=== PATIENT | female | born 1930 | race Caucasian/White ===

== ENCOUNTER → 2016-05-05 | Outpatient (REF) ==
[~2016-05-05] MED LIST: BUMEX0.5 MG PO; COREG12.5 MG PO; LIPITOR 10MG10 MG PO; MACRODANTIN100 PO; NEURONTIN300 MG/CAP; RT SPIRIVA18 MCG IH; RYTHMOL 15150 MG/TAB PO; TRADJENTA5 MG PO; URECHOLINE 25MG25 MG PO; VISION VITAMINS1 TA1 PO; VITAMIN A10k
[2016-05-05 08:26] LABS: PH 6 (5-8); SQUAMOUS EPITHELIAL None Seen /hpf; URINE APPEARANCE Clear; URINE BACTERIA Rare /hpf; URINE BILIRUBIN Negative (NEGATIVE); URINE BLOOD Negative (NEGATIVE); URINE COLOR Straw; URINE GLUCOSE Negative (NEGATIVE); URINE KETONE Negative (NEGATIVE); URINE RBC 0-2 /hpf; URINE UROBILINOGEN Negative (NEGATIVE)
== END ==
LOC: ZMSC 08:06
PROVIDERS: Orthopaedic Surgery
DX: Z01.89 Encounter for other specified special examinations (principal)

== ENCOUNTER 2016-05-06 08:56 | Inpatient (IN) | payer MEDICARE, BC ==
[2016-05-06] VITALS (386 sets, daily range): BP systolic 95–137; BP diastolic 42–68; PULSE 84–974; TEMP 33.6–36.8; O2SAT 62–100
[~2016-05-06] VITALS: Ht 167.6 cm; Wt 78.7 kg
[2016-05-06 09:13] LABS: MEAN CELL VOLUME 94 fl (80.0-100.0); MEAN CORPUSCULAR HGB CONC 32 g/dl (33.0-37.0); MEAN PLATELET VOLUME 10.6 fl (7.4-10.4); PLATELET COUNT 160 K/mm3 (130-400); RED BLOOD COUNT 3.74 M/mm3 (4.10-5.30); REDCELL DISTRIBUTION WIDTH-CV 13.6 % (11.5-14.5); WHITE BLOOD COUNT 19.7 K/mm3 (4.8-10.8)
[2016-05-06 09:16] LABS: HEMATOCRIT 35.1 % (37.0-47.0); HEMOGLOBIN 11.2 g/dl (12.5-16.0); MEAN CORPUSCULAR HEMOGLOBIN 30 pg (27.0-31.0)
[2016-05-06 09:18] LABS: ADD PATHOLOGY DIFF REVIEW NO; INR 1.1 (0.8-3.0); PROTHROMBIN TIME 12.6 SECONDS (9.7-12.8)
[2016-05-06 09:20] LABS: PARTIAL THROMBOPLASTIN TIME 28.2 SECONDS (26.0-37.0)
[2016-05-06 09:23] LABS: BAND 13 % (0-10); METAMYELOCYTE 4 % (0-0); NEUTROPHILS 64 % (42.0-75.2); PLATELET ESTIMATE NORMAL (NORMAL); TOTAL CELLS COUNTED 100
[2016-05-06 09:25] LABS: ALANINE AMINOTRANSFERASE 96 U/L (9-52); ALKALINE PHOSPHATASE 67 U/L (50-136); ANION GAP 14 mmol/L (7-16); BILIRUBIN,TOTAL 0.8 mg/dL (0.0-1.0); BLOOD UREA NITROGEN 39 mg/dL (7-17); CALCIUM 7.2 mg/dL (8.4-10.2); CARBON DIOXIDE 17 mmol/L (22-30); CHLORIDE 103 mmol/L (98-107); CREATININE, serum 1.52 mg/dL (0.52-1.25); GLUCOSE 336 mg/dL (74-106); LIPASE 135 U/L (23-300); PHOSPHOROUS 6.2 mg/dL (2.5-4.5); POTASSIUM 5.5 mmol/L (3.4-5.0); SODIUM 133 mmol/L (137-145); TOTAL PROTEIN 5.8 gm/dL (6.4-8.2)
[2016-05-06 09:31] LABS: ABG VENTILATOR TIDAL VOLUME 450 mL; ARTERIAL BLD GAS O2 SATURATION 98.7 % (92-100); ARTERIAL BLD GAS TCO2 CT 19.5; ARTERIAL BLOOD GAS BASE EXCESS -8.1 (-2-2); ARTERIAL BLOOD GAS HCO3 18.2 meq/L (22-26); ARTERIAL BLOOD GAS PHT 7.27 C (7.35-7.45); ARTERIAL BLOOD GAS PO2 428.2 mmHg (80-100); ARTERIAL BLOOD GAS PO2T 428.2 (80-100); ARTERIAL BLOOD GAS pH 7.27 (7.35-7.45); ATS? NO; OXYHEMOGLOBIN 97.9 %
[2016-05-06 09:37] LABS: B-TYPE NATRIURETIC PEPTIDE 1690 pg/mL (0-450); TROPONIN-I < 0.012 ng/mL (0.000-0.034)
[2016-05-06 17:16] LABS: VENOUS BLOOD GAS BE -4.9 (-4-4); VENOUS BLOOD GAS SAO2 59.1 % (60-80)
[2016-05-06 17:17] LABS: ARTERIAL BLD GAS O2 SATURATION 95.6 % (92-100); ARTERIAL BLD GAS TCO2 CT 19.9; ARTERIAL BLOOD GAS BASE EXCESS -8.8 (-2-2); ARTERIAL BLOOD GAS HCO3 18.5 meq/L (22-26); ARTERIAL BLOOD GAS PHT 7.23 C (7.35-7.45); ARTERIAL BLOOD GAS PO2 93.6 mmHg (80-100); ARTERIAL BLOOD GAS PO2T 90.2 (80-100); ARTERIAL BLOOD GAS pH 7.22 (7.35-7.45); OXYHEMOGLOBIN 94.9 %
[2016-05-06 17:17] LABS: VENOUS BLOOD GAS BE -7.4 (-4-4); VENOUS BLOOD GAS SAO2 54.1 % (60-80)
[2016-05-06 17:19] LABS: VENOUS BLOOD GAS SITE CENTRAL LINE
[2016-05-06 17:20] LABS: ABG VENTILATOR TIDAL VOLUME 450 mL; ATS? NO
[2016-05-06 17:21] LABS: VENOUS BLOOD GAS SITE CENTRAL LINE
[2016-05-06 17:26] LABS: ADJUSTED CALCIUM 7.9 mg/dL (8.4-10.2); ALBUMIN 3.1 gm/dL (3.5-5.0); BILIRUBIN,TOTAL 0.7 mg/dL (0.0-1.0); CALCIUM 7.2 mg/dL (8.4-10.2); CREATININE, serum 1.44 mg/dL (0.52-1.25); MAGNESIUM 1.8 mg/dL (1.6-2.3); PHOSPHOROUS 4.4 mg/dL (2.5-4.5); POTASSIUM 5.4 mmol/L (3.4-5.0); TOTAL PROTEIN 6.1 gm/dL (6.4-8.2)
[2016-05-06 17:27] LABS: BILIRUBIN,TOTAL 0.7 mg/dL (0.0-1.0); CALCIUM 7.2 mg/dL (8.4-10.2); TOTAL PROTEIN 5.6 gm/dL (6.4-8.2)
[2016-05-06] MEDS ORDERED: BUMEX0.5 MG PO (17:50)
[2016-05-06] MEDS ORDERED: COREG12.5 MG PO (17:50)
[2016-05-06] MEDS ORDERED: TRADJENTA5 MG PO (17:50)
[2016-05-06] MEDS ORDERED: RYTHMOL 15150 MG/TAB PO (17:50)
[2016-05-06] MEDS ORDERED: RT SPIRIVA18 MCG IH (17:51)
[2016-05-06] MEDS ORDERED: VISION VITAMINS1 TA1 PO (17:51)
[2016-05-06] MEDS ORDERED: NEURONTIN300 MG/CAP (17:51)
[2016-05-06] MEDS ORDERED: VITAMIN A10k (17:51)
[2016-05-06] MEDS ORDERED: URECHOLINE 25MG25 MG PO (17:52)
[2016-05-06] MEDS ORDERED: LIPITOR 10MG10 MG PO (17:52)
[2016-05-06] MEDS ORDERED: MACRODANTIN100 PO (17:52)
[2016-05-06 18:01] LABS: BILIRUBIN,DIRECT 0.3 mg/dL (0.0-0.4)
[2016-05-06 20:17] LABS: INR 1.3 (0.8-3.0); PROTHROMBIN TIME 14.3 SECONDS (9.7-12.8)
[2016-05-06 20:20] LABS: PARTIAL THROMBOPLASTIN TIME 25.9 SECONDS (26.0-37.0)
[2016-05-06 20:21] LABS: ALBUMIN 2.7 gm/dL (3.5-5.0); CREATININE, serum 1.32 mg/dL (0.52-1.25); MAGNESIUM 1.7 mg/dL (1.6-2.3); PHOSPHOROUS 4.8 mg/dL (2.5-4.5); POTASSIUM 5.6 mmol/L (3.4-5.0); TOTAL PROTEIN 5.5 gm/dL (6.4-8.2)
[2016-05-06 20:33] LABS: TROPONIN-I 0.165 ng/mL (0.000-0.034)
[2016-05-06 20:34] LABS: BILIRUBIN,DIRECT 0.3 mg/dL (0.0-0.4); BILIRUBIN,TOTAL 0.5 mg/dL (0.0-1.0)
[2016-05-06 20:43] LABS: PH 6 (5-8); SQUAMOUS EPITHELIAL None Seen /hpf; URINE APPEARANCE Clear; URINE BACTERIA None Seen /hpf; URINE BILIRUBIN Negative (NEGATIVE); URINE BLOOD Negative (NEGATIVE); URINE COLOR Yellow; URINE GLUCOSE 2+ (NEGATIVE); URINE KETONE Negative (NEGATIVE); URINE RBC 0-2 /hpf; URINE UROBILINOGEN Negative (NEGATIVE); URINE WBC 0-2 /hpf
[2016-05-06 21:29] LABS: VENOUS BLOOD GAS BE -11.6 (-4-4); VENOUS BLOOD GAS SAO2 55.4 % (60-80)
[2016-05-06 21:30] LABS: VENOUS BLOOD GAS SITE CENTRAL LINE
[2016-05-06 21:48] LABS: ARTERIAL BLD GAS O2 SATURATION 97.6 % (92-100); ARTERIAL BLD GAS TCO2 CT 18.1; ARTERIAL BLOOD GAS BASE EXCESS -11.6 (-2-2); ARTERIAL BLOOD GAS HCO3 16.7 meq/L (22-26)
[2016-05-06 21:49] LABS: ARTERIAL BLOOD GAS PO2 132.8 mmHg (80-100); ARTERIAL BLOOD GAS pH 7.16 (7.35-7.45); ATS? NO
== END 2016-05-07 02:15 | disposition home or self-care (01) | DRG 163 ==
LOC: COL.ER 08:56 → ICU 10:34 → COL.ER 10:34 → ICU 05-07 02:15
PROVIDERS: Emergency Medicine; Family Medicine; Internal Medicine Gastroenterology; Internal Medicine Pulmonary Disease
PROC: 0B948ZZ Drainage of Right Upper Lobe Bronchus, Via Natural or Artificial Opening Endoscopic (ICD-10-PCS; 2016-05-06)
PROC: 0B968ZZ Drainage of Right Lower Lobe Bronchus, Via Natural or Artificial Opening Endoscopic (ICD-10-PCS; 2016-05-06)
PROC: 0B988ZZ Drainage of Left Upper Lobe Bronchus, Via Natural or Artificial Opening Endoscopic (ICD-10-PCS; 2016-05-06)
PROC: 0B9B8ZZ Drainage of Left Lower Lobe Bronchus, Via Natural or Artificial Opening Endoscopic (ICD-10-PCS; 2016-05-06)
PROC: 0D9 Gastrointestinal System, Drainage (ICD-10-PCS; 2016-05-06)
PROC: 6A4Z0ZZ Hypothermia, Single (ICD-10-PCS; 2016-05-06)
PROC: 0DC18ZZ Extirpation of Matter from Upper Esophagus, Via Natural or Artificial Opening Endoscopic (ICD-10-PCS; 2016-05-06)
PROC: 5A1935Z Respiratory Ventilation, Less than 24 Consecutive Hours (ICD-10-PCS; principal; 2016-05-06 15:30)
DX: J69.0 Pneumonitis due to inhalation of food and vomit (principal); J96.01 Acute respiratory failure with hypoxia; K72.01 Acute and subacute hepatic failure with coma; I13.0 Hypertensive heart and chronic kidney disease with heart failure and stage 1 through stage 4 chronic kidney disease, or unspecified chronic kidney disease; N18.4 Chronic kidney disease, stage 4 (severe); I50.22 Chronic systolic (congestive) heart failure; N17.9 Acute kidney failure, unspecified; G93.1 Anoxic brain damage, not elsewhere classified; E87.1 Hypo-osmolality and hyponatremia; E87.4 Mixed disorder of acid-base balance; Z51.5 Encounter for palliative care; Z66 Do not resuscitate; E11.22 Type 2 diabetes mellitus with diabetic chronic kidney disease; Z79.4 Long term (current) use of insulin; J44.9 Chronic obstructive pulmonary disease, unspecified; Z95.0 Presence of cardiac pacemaker; E87.5 Hyperkalemia
CPT/HCPCS: 99223-AI; A4315; C1751; C1894; J0282; J1265; J1644; J1720; J1815; J2060; J2270; J2543; J7030; J7050; J7060; J7120; Q9967